=== PATIENT | female | born 1995 | race Hispanic/Latino ===

== ENCOUNTER 2019-07-10 05:30 | Inpatient (IN) | payer BC, OTHER ==
[~2019-07-10 05:30] MED LIST: Butorphanol Tartrate 1 MG/ML VIAL SLOW IVP PRN; HYDROcodone/Acetaminophen 5/325 mg Tablet PO PRN; Ibuprofen 800 MG TAB PO PRN; Lidocaine 1% (PF) 30 ML VIAL SC PRN; NS / Oxytocin 40 units/1000ml 1,000 ML IV PRN; NS w/ Oxytocin 10 units 500 ML IV SCH; Ondansetron PF 4 MG/2 ML Vial IVP PRN; Promethazine HCl 25 MG/ML VIAL IM PRN; hydrALAZINE 20 MG/ML VIAL SLOW IVP PRN
[2019-07-10] MEDS: Lactated Ringer's 1,000 ML IV SCH ×4 (06:00→23:29)
[2019-07-10 06:12] VITALS: BMI 31.3
[2019-07-10 06:28] LABS: Hemoglobin 12.3 g/dL (12.0-16.0); Mean Corpuscular HGB CONC 34.5 g/dL (32.0-36.0); Mean Corpuscular Hemoglobin 29.7 pg (27.0-31.0); RBC Distribution Width 12.1 % (11.5-14.5); Red Blood Cell (RBC) Count 4.15 mill/uL (4.20-5.40); White Blood Cell (WBC) Count 7.4 thou/uL (4.8-10.8)
[2019-07-10 06:44] LABS: Mean Platelet Volume 10.9 fL (7.4-10.4); Platelet Count 121 thou/uL (130-400)
[2019-07-10 07:01] LABS: Syphilis Antibody Nonreactive (Nonreactive); Syphilis Antibody Index 0.08 S/CO (<1.00 Non-Reactive)
[2019-07-10 07:41] LABS: HBSAg Index 0.15 S/CO (0-0.99); Hep B Surf Ag Non-Reactive S/CO (NonReactive)
[2019-07-10] MEDS ORDERED: Fentanyl 4 mcg/Bup 0.1% Cadd 100 ML ONE (08:31)
[2019-07-10] MEDS ORDERED: Lidocaine 1.5%/Epinephrine 1:200,000 5 ML AMPUL IJ ONE (08:32)
[2019-07-10] MEDS ORDERED: ePHEDrine/0.9% NaCl/PF SYRINGE 50 mg/10 ml SLOW IVP PRN (08:49)
[2019-07-10] MEDS ORDERED: Naloxone HCl 0.4 mg/ml Vial IVP PRN ×4 (08:49→13:36)
[2019-07-10] MEDS ORDERED: Ondansetron PF 4 MG/2 ML Vial IVP PRN ×3 (08:49→13:37)
[2019-07-10] MEDS ORDERED: Acetaminophen 325 MG TAB PO PRN (08:49)
[2019-07-10] MEDS ORDERED: Promethazine HCl 25 MG/ML VIAL IM PRN ×2 (08:49→13:36)
[2019-07-10] MEDS ORDERED: Lactated Ringer's 500 ML IV PRN (08:49)
[2019-07-10] MEDS ORDERED: diphenhydrAMINE 50 MG/ML VIAL IVP PRN ×2 (08:49→13:36)
[2019-07-10] MEDS ORDERED: Fentanyl 4 mcg/Bupivacaine 0.1% Cassette 100 ML EPIDURAL SCH (09:00)
[2019-07-10] MEDS ORDERED: Communication Order-Pharmacy FS SCH ×2 (09:00→13:45)
[2019-07-10] MEDS ORDERED: Lidocaine 2% PF 5 ML VIAL ONE (10:55)
[2019-07-10] MEDS ORDERED: Ketorolac Tromethamine 30 MG/ML VIAL ONE ×2 (10:55→13:20)
[2019-07-10] MEDS ORDERED: Ondansetron PF 4 MG/2 ML Vial ONE ×2 (10:55→13:20)
[2019-07-10] MEDS ORDERED: Bicitra 30 ML UDCUP ONE (12:17)
[2019-07-10] MEDS ORDERED: Lidocaine 2% 10 ML INJ ONE ×2 (12:23→12:49)
[2019-07-10] MEDS ORDERED: Oxytocin 10 UNITS/ML VIAL ONE (12:24)
[2019-07-10] MEDS ORDERED: ePHEDrine/0.9% NaCl/PF SYRINGE 50 mg/10 ml ONE (12:31)
[2019-07-10] MEDS ORDERED: Phenylephrine HCL 10 MG/ML VIAL ONE (12:33)
[2019-07-10] MEDS ORDERED: MORPHINE 5 MG/10 ML PF VIAL ONE (12:40)
[2019-07-10 13:19] LABS: pH (Cord, venous) 7.29 (7.32-7.43)
[2019-07-10] MEDS ORDERED: Naloxone HCl 0.4 mg/ml Vial IV PRN (13:36)
[2019-07-10] MEDS ORDERED: Promethazine HCl 25 MG SUPP PR PRN (13:36)
[2019-07-10] MEDS ORDERED: HYDROcodone/Acetaminophen 5/325 mg Tablet PO PRN (13:37)
[2019-07-10] MEDS ORDERED: Adacel (T-DAP) 0.5 ML SYRINGE IM ONE (13:37)
[2019-07-10] MEDS ORDERED: hydrALAZINE 20 MG/ML VIAL SLOW IVP PRN (13:37)
[2019-07-10] MEDS ORDERED: Lanolin Ointment 7 GM TUBE TOP PRN (13:37)
[2019-07-10] MEDS: Ibuprofen 800 MG TAB PO SCH ×2 (16:49→21:12)
[2019-07-10] MEDS: Simethicone Chewable 80 MG TAB PO PRN (22:23)
[2019-07-10] MEDS: Ketorolac Tromethamine 30 MG/ML VIAL IVP PRN (22:24)
[2019-07-11] MEDS: Ketorolac Tromethamine 30 MG/ML VIAL IVP PRN (04:04)
[2019-07-11] MEDS: Ibuprofen 800 MG TAB PO SCH ×3 (06:17→21:29)
[2019-07-11] MEDS: Prenatal Vitamin 1 TAB PO SCH (08:57)
[2019-07-11] MEDS: Docusate 100 MG CAP PO PRN ×2 (09:04→21:29)
[2019-07-11] MEDS: HYDROcodone/Acetaminophen 5/325 mg Tablet PO PRN ×3 (13:14→21:29)
[2019-07-11] MEDS: Lactated Ringer's 1,000 ML IV SCH ×2 (15:23→23:07)
[2019-07-11] MEDS: Simethicone Chewable 80 MG TAB PO PRN (23:08)
[2019-07-12] MEDS: HYDROcodone/Acetaminophen 5/325 mg Tablet PO PRN (03:53)
[2019-07-12] MEDS: Simethicone Chewable 80 MG TAB PO PRN ×2 (03:53→08:42)
[2019-07-12] MEDS: Lactated Ringer's 1,000 ML IV SCH ×2 (06:25→13:29)
[2019-07-12] MEDS: Ibuprofen 800 MG TAB PO SCH ×2 (06:28→13:30)
[2019-07-12] MEDS: Prenatal Vitamin 1 TAB PO SCH (08:42)
[2019-07-12 11:50] VITALS: BP 129/80; TEMP 98.4
--- NOTE | 2019-07-12 12:56 | OP ---
DATE OF PROCEDURE: 07/11/2019 PREOPERATIVE DIAGNOSES: 1. A 24-year-old G2, P0-0-1-0, presented at 39 weeks for induction of labor by Pitocin. 2. Advanced cervical dilation at 3.5 cm. 3. Group B Streptococcus negative. 4. A negative. 5. Noted breech at complete cervical dilation and +1 station. 6. Category II tracing with intermittent late decelerations and variables. POSTOPERATIVE DIAGNOSES: 1. A 24-year-old G2, P0-0-1-0, presented at 39 weeks for induction of labor by Pitocin. 2. Advanced cervical dilation at 3.5 cm. 3. Group B Streptococcus negative. 4. A negative. 5. Noted breech at complete cervical dilation and +1 station. 6. Category II tracing with intermittent late decelerations and variables. 7. Live-born male infant with Apgars of 8 and 9 at 1 and 5 minutes respectively. PROCEDURE PERFORMED: Primary low transverse section. ANESTHESIA: An epidural and combination spinal. ESTIMATED BLOOD LOSS: 400 mL. CLINICAL HISTORY: This patient is a 24-year-old, G2, P0-0-1-0, who presented at 39 weeks for a scheduled induction of labor. She already had an advanced cervical dilation at 3.5 cm, 70% effaced, and -3 station. She was admitted, and an amniotomy was performed with clear fluid. She was started on Pitocin and progressed nicely to complete cervical dilation and +1 station. She did have some tracing issues in the latter portion of her laboring, which resulted in placement of an IUPC and an amnioinfusion with resolution of some of her variables; however with the nurse's check, she was noted to have mid meconium and a presenting part with the buttocks and scrotum. A primary low transverse was called for, and the patient was taken back to the operating room and prepped and draped. DESCRIPTION OF PROCEDURE: After the patient was prepped and draped in the usual sterile fashion and after testing for adequate anesthesia, an incision was made in the lower abdomen with a Pfannenstiel manner and this was carried down to the fascia. The fascia was nicked in the midline and extended bilaterally with sharp dissection. The Lisa clamp was used x2 to grasp the superior edge of the fascia. The fascia was elevated off the rectus muscles superiorly, and then, same was done inferiorly. The rectus muscles were and the peritoneum was breached. This incision was extended with traction. The bladder blade was placed. The bladder flap was created and the bladder flap was placed anterior to this. The uterine surface was then exposed, and a new scalpel was used to make the uterine incision. This was carried down to the amnion, and an amniotomy was performed with clear fluid. This incision was then extended, and the surgeon's hand was placed in situ to lift the buttocks up from the canal and into the incision. The buttocks and the legs were then delivered, the posterior shoulder followed by the anterior shoulder, followed by the tucking of the mouth and delivery of the head. The infant cried spontaneously. The cord was doubly clamped and cut, and sent off to the Neonatology Team in attendance of the delivery. Cord blood was obtained, and the cord gas was obtained from the section of the cord, which was pH of 7.29. The placenta was then manually delivered intact with a three-vessel cord. The uterus was then exteriorized and cleansed of all debris and the uterine incision was closed with a double closure of running locking sutures with excellent hemostasis. The bladder flap was then reapproximated with a Monocryl suture. The gutters were cleansed of all debris and Seprafilm was then placed over the anterior surface of the uterus. The uterus was then placed back inside the abdomen, and the abdomen was closed with a peritoneal closure with a running suture, then reapproximation of the rectus muscles with [id number] loose sutures, and the fascia was then closed in a running fashion from the corners toward the midline and these two sutures were then tied together for securing. The subcutaneous tissue was irrigated copiously and Bovie cautery was used to correct any bleeding. The 2-0 plain gut interrupted sutures were used to reapproximate and build the adipose tissue layer and close the space and the skin was then closed with a 4-0 Rolo needle in a running fashion, and Steri-Strips and Mastisol were used to reinforce the closure. A pressure dressing was placed with a Tegaderm, Steri-Strips, and Mastisol. The patient was then cleansed, dedraped, and allowed to recover in the recovery room in satisfactory condition with her . All needle, sponge, lap, and instrument counts were correct x2 prior to leaving the operating room. There were no other issues surrounding this delivery. Job ID: [id number]
== END 2019-07-12 16:50 | disposition home or self-care (01) | DRG 788 ==
LOC: L&D 05:41 → 3SW 16:44 → UNDODISIN 07-12 16:50
PROVIDERS: ADMIT Obstetrics & Gynecology; ATTEND Obstetrics & Gynecology
PROC: 3E0234Z Introduction of Serum, Toxoid and Vaccine into Muscle, Percutaneous Approach (ICD-10-PCS; 2019-07-10)
PROC: 10D00Z1 Extraction of Products of Conception, Low, Open Approach (ICD-10-PCS; principal; 2019-07-11)
PROC: 10907ZC Drainage of Amniotic Fluid, Therapeutic from Products of Conception, Via Natural or Artificial Opening (ICD-10-PCS; 2019-07-11)
PROC: 3E033VJ Introduction of Other Hormone into Peripheral Vein, Percutaneous Approach (ICD-10-PCS; 2019-07-11)
DX: O32.1XX0 Maternal care for breech presentation, not applicable or unspecified (principal); O99.344 Other mental disorders complicating childbirth; Z3A.39 39 weeks gestation of pregnancy; Z37.0 Single live birth; F41.9 Anxiety disorder, unspecified; O77.0 Labor and delivery complicated by meconium in amniotic fluid; O76 Abnormality in fetal heart rate and rhythm complicating labor and delivery; Z23 Encounter for immunization
CPT/HCPCS: 36415; 51702; 82805; 85027; 86780; 86850; 86900; 86901; 87340; J0690; J1200; J1885; J2001; J2274; J2370; J2405; J2590; J3490